=== PATIENT | male | born 1940 | race Caucasian/White ===

== ENCOUNTER 2016-11-22 10:37 | Emergency (ER) | payer MEDICARE, OTHER ==
[~2016-11-22] VITALS: Ht 182.9 cm; Wt 102.3 kg
[~2016-11-22 10:37] MED LIST: ASPI325T32 PO; ATOR40TA69 PO; LEVO88TA4 PO; LISI-567 PO; MULT-1018 PO; OMEG-38 PO; OMPR20CCR PO; SOTA80TA PO; WARF5TAB7 PO
[2016-11-22 10:42] VITALS: BP 166/98; PULSE 70; RESP 20; O2SAT 96
--- NOTE | 2016-11-22 11:05 | ED.REPORT ---
HPI-Eye Problem Date of Service Nov 22, 2016 ED Provider: Esdras Galan MD Patient is a 76 year old male who presents to the ED complaining of R eye pain onset one week ago. Associated symptoms include R eye redness, itching, tingling in his R cheek (since resolved), and rash on head and face. He denies fever, L eye pain, SOB, Cough, or any other symptoms. He saw his PCP and eye doctor yesterday. Both gave him antibiotics. Nursing Notes Stated Complaint: SORE WATERY RED RIGHT EYE Chief Complaint: Skin Rash/Abscess Nursing Notes Reviewed: Yes Allergies: Coded Allergies: No Known Allergies (Unverified Allergy, Unknown, 11/22/16) Scheduled Acyclovir (Acyclovir) 800 Mg Tab 800 MG PO 5XD Aspirin (Aspirin) 325 Mg Tablet.dr 325 MG PO DAILY Atorvastatin Calcium (Atorvastatin Calcium) 40 Mg Tablet 40 MG PO DAILY Levothyroxine (Levothyroxine) 88 Mcg Tablet 88 MCG PO DAILY Lisinopril (Lisinopril) 20 Mg Tablet 20 MG PO BID Multivitamin (Multi Vitamin Daily) 1 Each Tablet 1 EACH PO DAILY [place]-3/Dha/Epa/Fish Oil (Fish Oil 1,000 mg Softgel) 1 Each Capsule 1 EACH PO DAILY Omeprazole (Prilosec) 20 Mg Capcr 20 MG PO DAILY Prednisolone Acetate (Prednisolone Acetate) 5 Ml Drops.susp 1 DROP RIGHT_EYE QID Prednisone (PredniSONE) 20 Mg Tablet 40 MG PO DAILY Sotalol HCl (Sotalol) 80 Mg Tablet 80 MG PO BID Warfarin Sodium (Warfarin Sodium) 5 Mg Tablet 5 MG PO DAILY Scheduled PRN Hydrocodone-Acetaminophen 5-325 mg (Hydrocodone-Acetaminophen 5-325 mg) 1 Each Tablet 1-2 TABLET PO Q4H PRN PRN For Pain Ondansetron ODT (Zofran ODT) 4 Mg Tablet 4 MG PO Q4H PRN PRN For Nausea General Time Seen by MD: 11:04 Chief Complaint Right eye affected Hx Obtained From: Patient, Daughter Arrived By: Walk-in Sudden in Onset?: Yes Onset Occurred: 1 week ago Symptom Duration: Since onset Recent Healthcare: Recent doctor visit Past Medical History Past Medical History Hypothyroid Reports: Hypertension Reports: Atrial fibrillation Past Surgical History CABG 1996 AICD hydrocelectomy Knee surg x2 Reports: Pacemaker insertion Smoking History Former Smoker Social History Other Social History: Good social support Ambulatory Status Independent Review of Systems Review of Systems Note: +tingling in R cheek Constitutional: Denies: Fever Eyes: Reports: Eye pain right (with itching), Redness right, Denies: Eye pain left Skin: Reports Rash (Head and face ) Complete sys rev & neg: except as marked. Respiratory: Denies: Non-productive cough, Shortness of breath Physical Exam Initial Vital Signs Vital Signs (First) Date Time Temp Pulse Resp B/P Pulse Ox O2 Delivery O2 Flow Rate FiO2 11/22/16 10:42 36.4 70 20 166/98 96 Room Air Initial VS: Reviewed, Vital signs normal General / Const: Well-developed, Well-nourished Neck: Full range of motion Respiratory: Breath sounds normal, Clear to auscultation, No respiratory distress Cardiovascular: Intact distal pulses Abdomen / GI: Soft, Non-tender Neurologic: Alert, Oriented, Nonfocal Psychiatric: Mood/affect normal, Behavior normal, Normal thought content Head / Eyes: Atraumatic Periorbital: Positive: Periorbital swelling R... Slit lamp exam reveals fluorescene uptake in R cornea Skin: Warm, Dry Color / Condition: Positive: Rash present Rash / Lesion Notes: herpetic rash on V1 distribution of facial nerve including periorbital region Procedures Slit Lamp Exam Slit lamp exam reveals fluorescene uptake in R cornea Time: 11:20 Procedure Performed by: ED physician Which Eye: Right Re-Eval/Medical Decision Re-Evaluation/Progress : Time of Eval: 11:40 Re-Evaluation/Progress Note: Rechecked patient. Discussed plan for discharge. Patient understands and agrees with plan. All questions addressed at this time. Consultation : Consulted With: [employer] Call Returned at: 11:30 Note: Discussed pt case with Dr. Tata Cartagena. Counseled Regarding: Diagnosis, Need for follow-up, When/why to return to ED Discharge & Departure Primary Impression: Ophthalmic herpes simplex Disposition: Home Patient Instructions: Shingles (ED) Additional Instructions: You have shingles. This is a chickenpox (shingles/herpes) virus. There is no cure for this infection. It is controllable however with steroids and antiviral medication. It is important that you take both the oral steroid and oral antiviral medication in addition to the steroid eyedrops. You can also use Tylenol or hydrocodone/APAP as needed for pain for a few days. It is essential that you follow-up with the eye doctor on Thursday for reexamination as this infection can cause permanent scarring to the cornea if not properly treated. Referrals: Phil Stoddard MD (PCP) Scribe Attestation Portions of this note were transcribed by Sanjay Day. I, Dr. Galan personally performed the history, physical exam and medical decision-making; I reviewed and confirmed the accuracy of the information in the transcribed note. Signed by: Sanjay Day 11/22/16, 1202 copies to: Phil Stoddard MD, Kirk H MD Nov 22, 2016 11:05 SANJAY DAY Nov 22, 2016 11:12
[2016-11-22] MEDS ORDERED: Fluorescein 0.6 mg Ophthalmic Strip ONE ×2 (11:14→11:16)
[2016-11-22] MEDS ORDERED: 0.9% Sodium Chloride Inhalation Solution ONE (11:15)
[2016-11-22] MEDS ORDERED: Tetracaine 0.5% 4 mL Ophthalmic Solution ONE (11:16)
[2016-11-22] MEDS ORDERED: oxyCODONE-Acetamin 5-325 mg Tablet PO ONE (11:55)
[2016-11-22] MEDS ORDERED: ZOV800 PO (12:09)
[2016-11-22] MEDS ORDERED: ONDA4TAB9 PO (12:09)
[2016-11-22] MEDS ORDERED: PRED5DRO6 RIGHT_EYE (12:09)
[2016-11-22] MEDS ORDERED: HYDR-4003 PO (12:09)
[2016-11-22] MEDS ORDERED: PRE20 PO (12:09)
== END 2016-11-22 12:23 | disposition home or self-care (01) ==
LOC: SED 10:37
DX: B00.50 Herpesviral ocular disease, unspecified (principal); I10 Essential (primary) hypertension; Z95.1 Presence of aortocoronary bypass graft; Z87.891 Personal history of nicotine dependence; Z79.82 Long term (current) use of aspirin; Z79.01 Long term (current) use of anticoagulants; Z79.899 Other long term (current) drug therapy

== ENCOUNTER 2016-12-01 10:37 | Emergency (ER) | payer MEDICARE, OTHER ==
[~2016-12-01] VITALS: Ht 182.9 cm; Wt 101.8 kg
[~2016-12-01 10:37] MED LIST changes: +HYDR-4003 PO; +ONDA4TAB9 PO; +PRE20 PO; +PRED5DRO6 RIGHT_EYE; +ZOV800 PO
[2016-12-01 10:39] VITALS: BP 125/86; PULSE 66; RESP 15; O2SAT 98
--- NOTE | 2016-12-01 10:45 | ED.REPORT ---
HPI-General Illness Date of Service Dec 01, 2016 ED Provider: Edilberto Magdaleno MD Pt is a 76 y/o male presenting to the ED c/o ongoing right eye pain for 3 weeks. The patient was here November 22 for 1 week of right eye pain and was diagnosed with ophthalmic HSV and was told to follow up with an ruling machine feeder. He saw the ruling machine feeder Dr. Arce who scheduled him to see a "cornea specialist" on 12/03. He was placed on Ganciclovir gel and told to stop the steroid eyedrops. He is still experiencing pain with radiation to the right ear and face which is why he decided to be rechecked today. The course of oral acyclovir has 1 day left. He reports the eye itself improved but the pain around the eye has not changed. Pt denies loss of vision, fever, chills. The narcotic pain medication caused him significant nausea therefore he stopped this and has begun taking Tylenol at an appropriate dose and frequency. Nursing Notes Stated Complaint: SHINGLES Chief Complaint: General Complaint Nursing Notes Reviewed: Yes (TapFwd not reconciled, EMR indicates h/o warfarin use) Allergies: Coded Allergies: No Known Allergies (Unverified Allergy, Unknown, 11/22/16) Scheduled Acyclovir (Acyclovir) 800 Mg Tab 800 MG PO 5XD Acyclovir (Acyclovir) 800 Mg Tab 800 MG PO 5XD Aspirin (Aspirin) 325 Mg Tablet.dr 325 MG PO DAILY Atorvastatin Calcium (Atorvastatin Calcium) 40 Mg Tablet 40 MG PO DAILY Gabapentin (Neurontin) 300 Mg Capsule 300 MG PO TID Started with 300 mg 1 tab on day #1, then increase to 1 tab twice a day on day #2, and then begin 1 tab 3 times a day on day #3 and then continue 3 times a day. Levothyroxine (Levothyroxine) 88 Mcg Tablet 88 MCG PO DAILY Lisinopril (Lisinopril) 20 Mg Tablet 20 MG PO BID Multivitamin (Multi Vitamin Daily) 1 Each Tablet 1 EACH PO DAILY [place]-3/Dha/Epa/Fish Oil (Fish Oil 1,000 mg Softgel) 1 Each Capsule 1 EACH PO DAILY Omeprazole (Prilosec) 20 Mg Capcr 20 MG PO DAILY Prednisolone Acetate (Prednisolone Acetate) 5 Ml Drops.susp 1 DROP RIGHT_EYE QID Prednisone (PredniSONE) 20 Mg Tablet 40 MG PO DAILY Sotalol HCl (Sotalol) 80 Mg Tablet 80 MG PO BID Warfarin Sodium (Warfarin Sodium) 5 Mg Tablet 5 MG PO DAILY Scheduled PRN Hydrocodone-Acetaminophen 5-325 mg (Hydrocodone-Acetaminophen 5-325 mg) 1 Each Tablet 1-2 TABLET PO Q4H PRN PRN For Pain Ondansetron ODT (Zofran ODT) 4 Mg Tablet 4 MG PO Q4H PRN PRN For Nausea General Time Seen by MD: 10:43 Chief Complaint Other (eye) Hx Obtained From: Patient Arrived By: Walk-in Sudden in Onset?: No Onset Occurred: 1 week ago Symptom Duration: Since onset Location: : Eye right Quality: Aching, Painful Severity: Current: Mild Severity: Maximum: Moderate Recent Healthcare: Recent doctor visit, Recent testing, Previous diagnosis, Prior workup Past Medical History Past Medical History Hypothyroid A-fib on Warfarin Hypertension Right eye HSV Past Surgical History CABG 1996 AICD hydrocelectomy Knee surg x2 Reports: Pacemaker insertion Smoking History Former Smoker Social History Other Social History: Good social support Ambulatory Status Independent Review of Systems Full Review of Systems Constitutional: Denies: Chills, Fever Eyes: Reports: Eye pain right, Denies: Visual loss bilateral Respiratory: Denies: Non-productive cough, Shortness of breath Cardiovascular: Denies: Chest pain, Dyspnea on exertion GI: Denies: Abdominal pain, Diarrhea, Nausea, Vomiting Male: Denies Dysuria, Denies Flank pain Skin: Reports Rash, Denies Swelling Complete sys rev & neg: except as marked. Physical Exam Vital Signs Vital Signs Date Time Temp Pulse Resp B/P Pulse Ox O2 Delivery O2 Flow Rate FiO2 12/01/16 10:39 35.8 66 15 125/86 98 Room Air Initial VS: Reviewed, Vital signs normal Neck: Supple, Full range of motion Respiratory: No respiratory distress Cardiovascular: Intact distal pulses Abdomen / GI: Soft, No distention Extremities: Vascular intact, Neuro intact, No swelling Skin: Warm, Dry, No cyanosis Neurologic: Alert, Oriented, Nonfocal Psychiatric: Mood/affect normal, Behavior normal, Normal thought content General/Constitutional: Awake, Alert, No acute distress, Well appearing, Cooperative, Not toxic appearing Head / Eyes: Atraumatic, Normocephalic, PERRL Healing lesions across the forehead and face. Trace conjunctival injection ENT: Atraumatic, Airway patent, Mucous membranes moist, Pharynx NL, Tympanic membs NL, Ext aud canal NL No lesions in ear canal or ear drum Re-Eval/Medical Decision Med Decision/Clinical Course This is a 76-year-old male returns for a recheck having been diagnosed with zoster involving the right eye on November 22. He was seen by the ruling machine feeder, and is on a gel topically for the eye, as well as continued acyclovir she is almost out of, and he has a recheck with a corneal ruling machine feeder in 2 days. He reports his eyes doing much better, but is still having terrible pain around the face, and then shoulder radiation to this ear Was concerned that that was worse. He is not been able to tolerate the hydrocodone as it causes nausea and he does not want to be on a narcotic-but he was very concerned as to how long to expect to be in discomfort, whether or not it was safe to take 6 Tylenol tabs total daily. On exam he has healing skin lesions, but no signs of secondary infection. I do not appreciate any visible signs of involvement of the year ear canal. All of the lesions on the forehead are healed and he and his both say everything the eye the face appears much improved. I have attempted address his concerns, first and foremost he states the Tylenol works adequately-but he just was not sure he could take it in the way he is doing so-and I have verified that it is safe indefinitely to take up to 6 tabs in a 24-hour period he wishes to avoid any further narcotics. His would like for him to start Neurontin, he is not convinced-but I gone ahead and written a prescription for him should he change his mind. His also like for his acyclovir to be extended disease still having symptoms but is out of acyclovir another day, so I went ahead and wrote a prescription to extended for another week. I have advised to keep the appointment with the ruling machine feeder. The patient's discharged in good condition. Return and routine precautions reviewed. Source of Hx: Old records Time of Eval: 11:00 Re-Evaluation/Progress Note: Pt rechecked. Informed pt of plan for treatment. Pt understands and agrees with plan for treatment. F/U instructions and RTER warnings given. All questions addressed. 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 Because this is an inflammation of the nerve root, it is typical to have this severe discomfort. For most people if does not resolve with time, but it is very difficult to predict the exact time course as there is wide variability. I do not find any signs of lesions in the ear or on the eardrum. 2. It is safe to continue the Tylenol (the maximum safe dose of Tylenol in 24 hours is 3000 mg, and this can be taken indefinitely without harm) 3. Keep your appointment for recheck with business taxes specialist on Thursday. 4. Continue the acyclovir 800mg five times a day for one more week. 5. You can also add neurontin to help reduce discomfort: Take 300mg at bedtime on day #1 then increase to 300mg twice a day on day #2, and finally 300mg three times a day going forward starting day #3. Referrals: Phil Stoddard MD (PCP) Scribe Attestation Portions of this note were transcribed by Vernon Davis. I, Dr. Magdaleno personally performed the history, physical exam and medical decision-making; I reviewed and confirmed the accuracy of the information in the transcribed note. Signed by Kaylie Ureña, 12/01/16 - 1100 copies to: Phil Stoddard MD, Matthew F MD Dec 01, 2016 10:45 VERNON DAVIS Dec 01, 2016 10:52
[2016-12-01] MEDS ORDERED: GABA300C PO (11:08)
[2016-12-01] MEDS ORDERED: ZOV800 PO (11:08)
== END 2016-12-01 11:22 | disposition home or self-care (01) ==
LOC: SED 10:37
DX: B02.30 Zoster ocular disease, unspecified (principal); I10 Essential (primary) hypertension; Z87.891 Personal history of nicotine dependence; Z95.1 Presence of aortocoronary bypass graft; Z79.01 Long term (current) use of anticoagulants; Z79.82 Long term (current) use of aspirin; Z79.899 Other long term (current) drug therapy